=== PATIENT | male | born 1960 | race Caucasian/White ===

== ENCOUNTER 2017-08-25 17:18 | Inpatient (IN) | payer MEDICARE ==
[~2017-08-25] VITALS: Ht 182.9 cm; Wt 119.3 kg
--- NOTE | 2017-08-25 18:00 | NUR ---
RN NOTES PATIENT ADMITTED FROM [place], PATIENT A/OX4, VERBALLY RESPONSIVE, NO DISTRESS NOTED, SKIN ASSESSMENT COMPLETED, PHOTOS TAKEN OF RIGHT SHOULDER ABSCESS AND BILATERAL HEEL REDNESS. DR. MICHEL GÓMEZ MADE AWARE OF ADMISSION. NEEDS ATTENDED. CALL LIGHT WITHIN REACH, WILL CONTINUE TO MONITOR.
--- NOTE | 2017-08-25 18:32 | NUR ---
RN NOTES PATIENT'S BP IS 125/79, BUT HEART RATE IS 133, PATIENT HAS IRREGULAR HEART RATE, UNABLE TO COUNT MANUALLY. PATIENT IS ASYMPTOMATIC AND IN NO DISTRESS. DR. GÓMEZ MADE AWARE WITH ORDERS TO TRANSFER PATIENT TO TELE FLOOR. NURSING WORK ADJUSTMENT INSTRUCTOR AND CHARGE NURSE MADE AWARE.
[2017-08-25] MEDS ORDERED: IV NS 0.9% 1,000 ML IV PRN (18:35)
[2017-08-25 18:56] VITALS: BP 125/79
[2017-08-25] MEDS ORDERED: Z GUARD REMEDY 2 OZ OINT TP PRN (19:00)
[2017-08-25] MEDS ORDERED: ACETAMINOPHEN 325 MG TABLET PO PRN (19:00)
[2017-08-25] MEDS ORDERED: HYDROCODONE/APAP 10/325MG 1 EA TABLET PO PRN (19:00)
[2017-08-25] MEDS ORDERED: ONDANSETRON HCL/PF 4 MG/2 ML VIAL IVP PRN (19:00)
[2017-08-25] MEDS ORDERED: ZOLPIDEM TARTRATE 5 MG TABLET PO PRN (19:00)
--- NOTE | 2017-08-25 19:07 | NUR ---
RN NOTES PATIENT SEEN BY DR. MICHEL GÓMEZ, PER , OK FOR PATIENT TO STAY HERE IN [facility], DR. MICHEL GÓMEZ CALLED SURGEON ON-CALL FOR POSSIBLE SURGERY TONIGHT. PATIENT IS IN NO DISTRESS, NEEDS ATTENDED AND MET, CALL LIGHT WITHIN REACH, WILL CONTINUE TO MONITOR.
[2017-08-25] MEDS ORDERED: DEXTROSE 50%-WATER 50 ML DISP.SYRIN IV PRN (19:30)
[2017-08-25] MEDS ORDERED: DILTIAZEM HCL 50 MG IV IV ONE (19:30)
[2017-08-25] MEDS ORDERED: DILTIAZEM HCL IV 125 MG in IV NS 0.9% 100 ML IV PRN (19:30)
--- NOTE | 2017-08-25 19:30 | NUR ---
RN NOTES RECEIVED PATIENT IN BED AWAKE, AO X 3, ABLE TO MAKE NEEDS KNOWN. NO ACUTE DISTRESS NOTED. DENIES ANY PAIN AT THIS TIME. IV SITE PATENT, INTACT; FLUSHED. SAFETY REMINDERS GIVEN. ON LOW BED WITH BILATERAL UPPER SIDE RAILS UP. CALL SIMON WITHIN EASY REACH. WILL CONTINUE TO MONITOR.
[2017-08-25 20:00] VITALS: BP 128/81
--- NOTE | 2017-08-25 20:22 | NUR ---
RN NOTES PATIENT PICKED UP BY OR NURSES FOR RIGHT SHOULDER BLADE INCISION AND DRAINAGE. PATIENT IN STABLE CONDITION.
[2017-08-25] MEDS ORDERED: FEE PK DOSING 1 MIN EA MC ONE (20:29)
--- NOTE | 2017-08-25 20:30 | NUR ---
RN NOTES PER MICHEL GÓMEZ GLUER AND WEDGER, CARDIZEM IV ORDERS CANCELLED. REPORT GIVEN TO HERMANN SCHULTZ IN TELE/[facility] FIRST FLOOR FOR CONTINUITY OF CARE.
[2017-08-25 20:43] LABS: BASOPHILS % (AUTO) 0.3 % (0.0-2.0); EOSINOPHILS % (AUTO) 0.9 % (0.0-6.0); HEMATOCRIT 44 % (39-51); HEMOGLOBIN 14.6 g/dL (13.5-17.5); LYMPHOCYTES # (AUTO) 1.3 /CMM (0.8-4.8); LYMPHOCYTES % (AUTO) 11.7 % (20.0-44.0); MEAN CORPUSCULAR HEMOGLOBIN 30 PG (26.0-33.0); MEAN CORPUSCULAR HGB CONC 33 g/dl (31.0-36.0); MEAN CORPUSCULAR VOLUME 91 fL (80-96); MONOCYTES # (AUTO) 1.1 /CMM (0.1-1.30); MONOCYTES % (AUTO) 10.1 % (2.0-12.0); NEUTROPHILS # (AUTO) 8.7 /CMM (1.8-8.9); PLATELET COUNT (AUTO) 218 /CMM (150-450); RDW COEFFICIENT OF VARIATION 12.4 (11.5-15.0); RED BLOOD CELL COUNT(AUTO) 4.84 MIL/uL (4.5-6.0); WHITE BLOOD COUNT (AUTO) 11.3 K/uL (4.3-11.0)
[2017-08-25 20:54] LABS: CALCIUM, SERUM 8.6 mg/dL (8.5-10.1); CREATININE 1.1 mg/dL (0.6-1.3); POTASSIUM 3.5 mmol/L (3.5-5.1)
[2017-08-25] MEDS ORDERED: BACITRACIN 50000 UNITS/VIAL ONE (20:54)
[2017-08-25] MEDS ORDERED: LIDOCAINE 0.5% HCL 50 ML VIAL ONE (20:55)
[2017-08-25 20:57] LABS: MAGNESIUM 1.8 mg/dL (1.8-2.4); PHOSPHORUS 3.2 mg/dL (2.5-4.9)
[2017-08-25] MEDS ORDERED: HYDROMORPHONE INJ 2 MG/ML DISP.SYRIN ONE (20:58)
[2017-08-25] MEDS ORDERED: ROCURONIUM BROMIDE 50 MG/5 ML ONE (20:58)
[2017-08-25] MEDS ORDERED: SUCCINYLCHOLINE CHLORIDE 20 MG/ML VIAL ONE (20:58)
[2017-08-25] MEDS: VANCOMYCIN 1.5 GM in IV D5W 500 ML IV SCH (21:00)
[2017-08-25 21:01] LABS: INR 1.11 (0.87-1.13)
[2017-08-25 23:10] VITALS: BP 129/83
--- NOTE | 2017-08-25 23:10 | NUR ---
TUBE SIZER OPERATOR INITIAL NOTE RECEIVED REPORT FROM OR NURSE MASON. RECEIVED PATIENT VIA DALE, Sosa/RAF4, DENIES PAIN OR DISCOMFORT. DENIES SOB. ON 4LPMO2 VIA NC. SKIN WARM AND DRY TO TOUCH. WITH RIGHT SHOULDER DRESSING IN PLACE, INTACT AND DRY. ORIENTED TO ROOM AND CALL LIGHT SYSTEM. PATIENT VERBALIZED UNDERSTANDING. HOB ELEVATED. SIDE RAILS UP AND LOCKED. BED KEPT AT LOWEST POSITION. CALL LIGHT KEPT WITHIN EASY REACH. WILL CONTINUE TO MONITOR. Addendum: 08/26/17 at 0140 by AGUSTINA LAWS RN PLEASE ADD TO NOTE: PATIENT RECEIVED AFIB UNCONTROLLED 122. DENIES CHEST PAIN. PATIENT NO S/S OF DISTRESS.
[2017-08-25] MEDS ORDERED: ACETAMINOPHEN 650 MG/20.3 ML UDC NG PRN (23:30)
[2017-08-25] MEDS ORDERED: HYDROMORPHONE 1 MG/1 ML DISP.SYRIN IV PRN (23:30)
--- NOTE | 2017-08-25 23:57 | NUR ---
GATHERING MACHINE FEEDER NOTE CHARGE NURSE SPOKE WITH PHARMACY TO CLARIFY ANTIBIOTIC ORDERS, PER PHARMACY HOLD OFF ON VANCOMYCIN DOSE FOR TONIGHT AND CHECK VANCO TROUGH LEVEL RANDOM IN AM, OK TO GIVE ZOSYN NOW AT SAME DOSE. DR. COWAN AT BEDSIDE SPEAKING WITH PATIENT.
[2017-08-26] VITALS (47 sets, daily range): BP systolic 93–118; BP diastolic 50–84
[2017-08-26] MEDS ORDERED: DILTIAZEM HCL 50 MG IV IV ONE
[2017-08-26] MEDS ORDERED: DILTIAZEM HCL IV 125 MG in IV D5W 100 ML IV PRN ×2
[2017-08-26] MEDS: BLOOD SUGAR DIAGNOSTIC 1 EACH STRIP IN SCH ×7 (00:07→21:14)
[2017-08-26] MEDS: INSULIN REGULAR, HUMAN 100 UNIT/ML 3 ML VIAL SQ PRN ×6 (00:18→21:18)
[2017-08-26] MEDS ORDERED: PIPERACILLIN /TAZOBACTAM 3.375 G VIAL IV ONE (00:21)
[2017-08-26] MEDS: PIPERACILLIN /TAZOBACTAM 3.375 G in IV D5W 50 ML IV SCH ×5 (00:22→23:32)
--- NOTE | 2017-08-26 01:00 | NUR ---
FINANCIAL OFFICER NOTE BLOOD SUGAR CHECK FOR 0100 NOT TAKEN, BLOOD SUGAR RECENTLY TAKEN AROUND MIDNIGHT. WILL CHECK NEXT SCHEDULED DOSE.
[2017-08-26 04:39] LABS: BASOPHILS % (AUTO) 0.4 % (0.0-2.0); EOSINOPHILS % (AUTO) 0.2 % (0.0-6.0); HEMATOCRIT 40 % (39-51); HEMOGLOBIN 13.7 g/dL (13.5-17.5); LYMPHOCYTES # (AUTO) 0.9 /CMM (0.8-4.8); LYMPHOCYTES % (AUTO) 8.9 % (20.0-44.0); MEAN CORPUSCULAR HEMOGLOBIN 31 PG (26.0-33.0); MEAN CORPUSCULAR HGB CONC 34 g/dl (31.0-36.0); MEAN CORPUSCULAR VOLUME 90 fL (80-96); MONOCYTES # (AUTO) 0.4 /CMM (0.1-1.30); MONOCYTES % (AUTO) 4.3 % (2.0-12.0); NEUTROPHILS # (AUTO) 8.4 /CMM (1.8-8.9); NEUTROPHILS % (AUTO) 86.2 % (43.0-81.0); PLATELET COUNT (AUTO) 202 /CMM (150-450); RDW COEFFICIENT OF VARIATION 12.6 (11.5-15.0); RED BLOOD CELL COUNT(AUTO) 4.46 MIL/uL (4.5-6.0); WHITE BLOOD COUNT (AUTO) 9.7 K/uL (4.3-11.0)
[2017-08-26 05:01] LABS: ALBUMIN 1.9 g/dL (3.4-5.0); BILIRUBIN,TOTAL 0.8 mg/dL (0.2-1.0); CALCIUM, SERUM 7.8 mg/dL (8.5-10.1); CREATININE 0.9 mg/dL (0.6-1.3); MAGNESIUM 1.9 mg/dL (1.8-2.4); PHOSPHORUS 3.9 mg/dL (2.5-4.9); POTASSIUM 4.2 mmol/L (3.5-5.1); TOTAL PROTEIN, SERUM 5.8 g/dL (6.4-8.2)
[2017-08-26 05:02] LABS: THYROID STIMULATING HORMONE 0.377 uIU/mL (0.358-3.74)
--- NOTE | 2017-08-26 06:08 | NUR ---
IMPORT DISPATCHER NOTE NOTED PATIENT HAS NOT HAD URINE OUTPUT, PATIENT DENIES ANY BLADDER DISCOMFORT OR URGENCY. STATED HE URINATED LARGE AMOUNT PRIOR TO HIS PROCEDURE. WILL CONTINUE TO MONITOR.
--- NOTE | 2017-08-26 07:25 | NUR ---
ROAD MACHINE RUNNER CLOSING NOTE NO SIGNIFICANT CHANGES OVERNIGHT. NO RESPIRATORY DISTRESS NOTED. DENIES PAIN OR DISCOMFORT. ALL NEEDS ANTICIPATED AND MET. SIDE RAILS UP AND LOCKED. BED KEPT AT LOWEST POSITION. CALL LIGHT KEPT WITHIN EASY REACH. WILL CONTINUE TO MONITOR. Addendum: 08/26/17 at 0729 by AGUSTINA LAWS RN CONTINUITY OF CARE ENDORSED TO AM NURSE
--- NOTE | 2017-08-26 08:15 | NUR ---
received pt from day shift, a/p x4, follows commands, Afib controlled, on cardizem drip at 5mg/hr, on 2L 02 sat well, lungs clear, BL leg pitting 3+ edema, surgical dressing observed, no bleeding and s/s of infection noted, v/s stable, no pain, pt turns and repositions by himself.
[2017-08-26] MEDS: VANCOMYCIN 1.5 GM in IV D5W 500 ML IV SCH ×2 (09:17→21:00)
[2017-08-26] MEDS: CARVEDILOL 12.5 MG TABLET PO SCH ×2 (09:30→21:00)
[2017-08-26] MEDS: IV NS 0.9% 1,000 ML IV PRN ×2 (14:53→23:32)
--- NOTE | 2017-08-26 16:14 | NUR ---
pt is resting in the bed, alert, follows commands, Afib controlled, off of Cardizem, on 2 L 02 sat well, no pain, v/s stable, good urine output, pt cleaned, changed and repositioned.
[2017-08-26] MEDS: DAKINS QUARTER STRENGTH (0.125%) 480 ML BOTTLE TOP SCH (17:42)
--- NOTE | 2017-08-26 19:30 | NUR ---
LEGAL SPECIALIST INITIAL NOTE RECEIVED PATIENT A/OX4, ABLE TO MAKE NEEDS KNOWN. DENIES PAIN OR DISCOMFORT. DENIES SOB. ON 2LPMO2 VIA NC. SKIN WARM AND DRY TO TOUCH. WITH RIGHT SHOULDER DRESSING IN PLACE, INTACT AND DRY. IVF RUNNING. HOB ELEVATED. SIDE RAILS UP AND LOCKED. BED KEPT AT LOWEST POSITION. CALL LIGHT KEPT WITHIN EASY REACH. WILL CONTINUE TO MONITOR. Addendum: 08/27/17 at 0532 by AGUSTINA LAWS RN PER AM NURSE REPORT, PER DR. GÓMEZ WANTS TO KEEP PATIENT IN ICU FOR ONE MORE NIGHT.
[2017-08-27] VITALS (25 sets, daily range): BP systolic 101–118; BP diastolic 54–80
[2017-08-27] MEDS: BLOOD SUGAR DIAGNOSTIC 1 EACH STRIP IN SCH ×6 (00:28→22:15)
[2017-08-27] MEDS: INSULIN REGULAR, HUMAN 100 UNIT/ML 3 ML VIAL SQ PRN ×3 (00:32→09:12)
--- NOTE | 2017-08-27 03:12 | NUR ---
SAMPLE BOX MAKER NOTE PATIENT STATES HE HAS TO USE RESTROOM TO HAVE BOWEL MOVEMENT, OFFERED BED BASSETT AND BEDSIDE COMMODE, PATIENT REFUSED AND INSISTED TO USE THE BATHROOM. INFORMED CHARGE NURSE, OK TO USE RESTROOM. ASSISTED PATIENT TO RESTROOM, PATIENT AMBULATED WITH STEADY GAIT. PER PATIENT HE HAD A FALSE ALARM AND ONLY URINATED LARGE AMOUNT IN THE TOILET. ASSISTED PATIENT BACK TO BED. PER PATIENT HE WOULD LIKE TO LEAVE DVT PUMPS OFF FOR NOW, STATES THEY'RE UNCOMFORTABLE. INFORMED PATIENT OF BENEFITS, PATIENT VERBALIZED UNDERSTANDING BUT WOULD STILL LIKE TO LEAVE THEM OFF AT THIS TIME. WILL CONTINUE TO MONITOR.
[2017-08-27 04:27] LABS: BASOPHILS % (AUTO) 0.2 % (0.0-2.0); EOSINOPHILS % (AUTO) 1.8 % (0.0-6.0); HEMATOCRIT 39 % (39-51); HEMOGLOBIN 12.8 g/dL (13.5-17.5); LYMPHOCYTES # (AUTO) 1.6 /CMM (0.8-4.8); LYMPHOCYTES % (AUTO) 21.2 % (20.0-44.0); MEAN CORPUSCULAR HEMOGLOBIN 30 PG (26.0-33.0); MEAN CORPUSCULAR HGB CONC 33 g/dl (31.0-36.0); MEAN CORPUSCULAR VOLUME 89 fL (80-96); MONOCYTES # (AUTO) 0.7 /CMM (0.1-1.30); MONOCYTES % (AUTO) 9.6 % (2.0-12.0); NEUTROPHILS % (AUTO) 67.2 % (43.0-81.0); PLATELET COUNT (AUTO) 206 /CMM (150-450); RDW COEFFICIENT OF VARIATION 12.7 (11.5-15.0); RED BLOOD CELL COUNT(AUTO) 4.34 MIL/uL (4.5-6.0); WHITE BLOOD COUNT (AUTO) 7.5 K/uL (4.3-11.0)
[2017-08-27 04:43] LABS: MAGNESIUM 1.8 mg/dL (1.8-2.4); PHOSPHORUS 3.1 mg/dL (2.5-4.9)
[2017-08-27] MEDS: PIPERACILLIN /TAZOBACTAM 3.375 G in IV D5W 50 ML IV SCH ×3 (05:16→17:11)
[2017-08-27] MEDS: DAKINS QUARTER STRENGTH (0.125%) 480 ML BOTTLE TOP SCH ×2 (05:24→17:14)
--- NOTE | 2017-08-27 07:33 | NUR ---
SLIVER HANDLER CLOSING NOTE NO SIGNIFICANT CHANGES OVERNIGHT. NO RESPIRATORY DISTRESS NOTED. DENIES PAIN OR DISCOMFORT. ALL NEEDS ANTICIPATED AND MET. WOUND TX DONE. SIDE RAILS UP AND LOCKED. BED KEPT AT LOWEST POSITION. CALL LIGHT KEPT WITHIN EASY REACH. CONTINUITY OF CARE ENDORSED TO AM NURSE.
--- NOTE | 2017-08-27 08:12 | NUR ---
received pt from night, shift, a/o x4, follows commands, Afib controlled, on 2L 02 sat well, tolerates diet, good urine output, seen by auto slip cover installer and surgeon, v/s stable, no pain, pt turns and repositions by himself.
--- NOTE | 2017-08-27 08:36 | NUR ---
WOUND CARE CONSULT WOUND CARE RECEIVED CONSULT FOR POST OP WOUND LOCAL EXCISION-LEFT SHOULDER. WOUND CARE WILL DEFER CONSULT AND ALL TREATMENT PLANS TO SURGICAL TEAM WHO ARE CURRENTLY FOLLOWING. PATIENT WITH LORENA AT 16, ALL PRESSURE ULCER PREVENTION MEASURES ARE NOTED TO BE IN PLACE. WILL SEE PRN.
[2017-08-27] MEDS: VANCOMYCIN 1.5 GM in IV D5W 500 ML IV SCH ×2 (08:41→22:12)
[2017-08-27] MEDS: CARVEDILOL 12.5 MG TABLET PO SCH ×2 (09:00→22:14)
[2017-08-27] MEDS: POTASSIUM CHLORIDE 20 MEQ TAB.PRT.SR PO SCH ×3 (09:09→11:08)
[2017-08-27] MEDS: INSULIN LISPRO/ASPART 100 UNIT/ML CARTRIDGE SQ SCH ×2 (11:12→17:11)
[2017-08-27] MEDS ORDERED: BLOOD SUGAR DIAGNOSTIC 1 EACH STRIP IN SCH (12:00)
--- NOTE | 2017-08-27 15:45 | NUR ---
RN NOTES RECEIVED REPORT FROM PARAG XIAO RN
--- NOTE | 2017-08-27 16:00 | NUR ---
TELE/RN INITIAL NOTES RECEIVED PT FROM ICU VIA ICU BED. A/0X4. ON ROOM AIR, TOLERATING WELL, NO SOB NOTED. NO C/O PAIN AT THIS TIME. AFIB CONTROLLED ON TELE MONITOR. WITH LAC G20 SL. INTACT AND PATENT. NO SIGNS OF INFECTION. POS STAPH INFECTION ON WOUND PER ENDORSEMENT. CONTACT ISOLATION IN PLACED. SAFETY MEASURES IN PLACED. CALL LIGHT WITHIN REACH. WILL CONT TO MONITOR
--- NOTE | 2017-08-27 16:02 | NUR ---
pt transferred to Tele 118-1, pt is stable, ACLS followed, report given to Charleen.
--- NOTE | 2017-08-27 18:15 | NUR ---
RN NOTES NOTED PT AFIB ON TELE MONITOR, HR 130 UP TO 147. PT DENIES CHEST PAIN. NOTIFIED DR GÓMEZ WITH NEW ORDERS MADE NEW ORDER: CARDIZEM CD 240 MG PO NOW THEN Q DAILY. DIGOXIN 0.25 MG PO NOW THEN 0.125 MG PO Q DAILY. ORDERS NOTED AND CARRIED OUT. WILL CONT TO MONITOR
[2017-08-27] MEDS ORDERED: DILTIAZEM HCL CD 240 MG PO STA (18:20)
[2017-08-27] MEDS ORDERED: DIGOXIN 0.25 MG TABLET PO STA (18:42)
--- NOTE | 2017-08-27 19:15 | NUR ---
RN NOTES PT IN STABLE CONDITION. NO C/O PAIN AT THIS TIME. NO SOB NOTED. STILL AFIB HR 124 ON TELEMONITOR, SAFETY MEASURES OBSERVED AT ALL TIMES. ALL NEEDS ANTICIPATED. ENDORSED TO PM SHIFT NURSE FOR SHANIA
--- NOTE | 2017-08-27 20:00 | NUR ---
RN INITIAL NOTES RECEIVED PT IN BED. A/0X4. ON ROOM AIR, TOLERATING WELL, NO SOB NOTED. NO C/O PAIN AT THIS TIME. AFIB CONTROLLED ON TELE MONITOR. WITH LAC G20 SL. INTACT AND PATENT. NO SIGNS OF INFECTION. CONTACT ISOLATION IN PLACED. SAFETY MEASURES IN PLACED. CALL LIGHT WITHIN REACH. WILL CONT TO MONITOR
[2017-08-27] MEDS ORDERED: INSULIN GLARGINE, 100 UNIT/ML CARTRIDGE SQ SCH (22:00)
--- NOTE | 2017-08-27 23:45 | NUR ---
PHYSIOLOGIST OPENING NOTES: RECEIVED PT IN BED AND IS A/OX4. PT WATCHING TELEVISION. PT IS ON 2LPM VIA NC. PT IS BEING INFUSED WITH VANCOMYCIN 250ML/HR AT THE MOMENT. NO SOB NOTED. NO S/S OF DISTRESS. CALL LIGHT WITHIN PT'S REACH. BED KEPT IN LOW, LOCKED POSITION, AND SIDE RAILS X 2UP. WILL CONTINUE TO MONITOR PT. Addendum: 08/28/17 at 0019 by RALEIGH HARTLEY RN PT ON TELE BOX AND READING SHOWS A-FIB 109 WITH PACS.
--- NOTE | 2017-08-27 23:56 | NUR ---
RN CLOSING NOTES REPORT GIVING TO DUSTIN FOR SHANIA.
[2017-08-28] VITALS: BP 102/69
[2017-08-28] MEDS: PIPERACILLIN /TAZOBACTAM 3.375 G in IV D5W 50 ML IV SCH ×6 (00:25→23:51)
--- NOTE | 2017-08-28 02:30 | NUR ---
PERSONAL LINES ACCOUNT MANAGER NOTES: PT COMPLAINING OF PAIN IN RIGHT UPPER BACK AFTER WOUND TX. PT WAS ADMINISTERED MORPHINE 4MG IV. WILL CONTINUE TO MONITOR.
[2017-08-28] MEDS: MORPHINE SULFATE INJ 2 MG/ML DISP.SYRIN IV PRN ×2 (02:31→18:58)
[2017-08-28 04:00] VITALS: BP 112/82
[2017-08-28] MEDS: DAKINS QUARTER STRENGTH (0.125%) 480 ML BOTTLE TOP SCH ×2 (05:08→17:25)
--- NOTE | 2017-08-28 05:08 | NUR ---
INVENTORY CONTROL PLANNER NOTES: HAD TO MANUALLY ADMIN DAKINS SINCE THERE WAS NO LABEL ON IT.
[2017-08-28] MEDS: BLOOD SUGAR DIAGNOSTIC 1 EACH STRIP IN SCH ×2 (06:22→11:59)
[2017-08-28] MEDS: INSULIN LISPRO/ASPART 100 UNIT/ML CARTRIDGE SQ SCH ×3 (06:23→17:16)
--- NOTE | 2017-08-28 06:27 | NUR ---
BACTERIOLOGIST FOOD NOTES: PT'S BLOOD SUGAR WAS 314.PT ADMINISTERED SCHEDULED LISPRO OF 5 UNITS. INFORMED CHARGE NURSE THAT PT'S OTHER INSULIN WAS DC. WILL ENDORSE TO AM NURSE.
--- NOTE | 2017-08-28 06:54 | NUR ---
DOCUMENT COORDINATOR CLOSING NOTES: ALL NEEDS WERE ATTENDED AND ANTICIPATED FOR. PT ON ROOM AIR AND ASLEEP AT THIS TIME. IV REMAINS IN L AC AND IS CURRENTLY H/L. PT ASLEEP AT THIS TIME BUT EASILY AROUSABLE TO TOUCH. CALL LIGHT WITHIN PT'S REACH. BED KEPT IN LOW, LOCKED POSITION, AND SIDE RAILSX 2 UP. PT ON TELE BOX AND READING SHOWS A FIB 96. WILL ENDORSE TO AM NURSE FOR SHANIA.
[2017-08-28 08:00] VITALS: BP 102/75
--- NOTE | 2017-08-28 08:00 | NUR ---
HOME DEMONSTRATOR NOTES PT IN BED, AWAKE, ALERT AND ORIENTED, NO COMPLAINT OF PAIN, BREATHING PATTERN NORMAL, CALL LIGHT WITHIN REACH, NEEDS ATTENDED.
[2017-08-28 08:11] LABS: BASOPHILS % (AUTO) 0.7 % (0.0-2.0); EOSINOPHILS % (AUTO) 1.6 % (0.0-6.0); HEMATOCRIT 41 % (39-51); HEMOGLOBIN 13.5 g/dL (13.5-17.5); LYMPHOCYTES # (AUTO) 1.6 /CMM (0.8-4.8); LYMPHOCYTES % (AUTO) 29.1 % (20.0-44.0); MEAN CORPUSCULAR HEMOGLOBIN 29 PG (26.0-33.0); MEAN CORPUSCULAR HGB CONC 33 g/dl (31.0-36.0); MEAN CORPUSCULAR VOLUME 90 fL (80-96); MONOCYTES # (AUTO) 0.4 /CMM (0.1-1.30); MONOCYTES % (AUTO) 7.9 % (2.0-12.0); NEUTROPHILS # (AUTO) 3.4 /CMM (1.8-8.9); NEUTROPHILS % (AUTO) 60.7 % (43.0-81.0); PLATELET COUNT (AUTO) 201 /CMM (150-450); RDW COEFFICIENT OF VARIATION 12.7 (11.5-15.0); RED BLOOD CELL COUNT(AUTO) 4.57 MIL/uL (4.5-6.0); WHITE BLOOD COUNT (AUTO) 5.6 K/uL (4.3-11.0)
[2017-08-28 08:35] LABS: ALBUMIN 1.9 g/dL (3.4-5.0); BILIRUBIN,TOTAL 0.7 mg/dL (0.2-1.0); CREATININE 1.1 mg/dL (0.6-1.3); MAGNESIUM 1.8 mg/dL (1.8-2.4); PHOSPHORUS 3.8 mg/dL (2.5-4.9); TOTAL PROTEIN, SERUM 5.8 g/dL (6.4-8.2)
[2017-08-28] MEDS: VANCOMYCIN 1.5 GM in IV D5W 500 ML IV SCH ×2 (09:51→21:34)
[2017-08-28] MEDS: DIGOXIN 0.125 MG TABLET PO SCH (09:52)
[2017-08-28] MEDS: CARVEDILOL 12.5 MG TABLET PO SCH ×2 (09:52→21:43)
[2017-08-28] MEDS: DILTIAZEM HCL CD 240 MG PO SCH (09:52)
--- NOTE | 2017-08-28 10:47 | NUR ---
ELEVATOR SERVICE TECHNICIAN NOTES PT IN BED, PT SEEN BY DR. JUDGE, PLAN OF CARE CARE DISCUSSED WITH PT, VERBALIZED UNDERSTANDING.
[2017-08-28 12:00] VITALS: BP 101/74
[2017-08-28] MEDS ORDERED: *INSULIN REGULAR(HUMULIN R)HUM 100 UNIT/ML VIAL SQ PRN (13:00)
[2017-08-28] MEDS ORDERED: DEXTROSE 50%-WATER 50 ML DISP.SYRIN IV PRN (13:00)
[2017-08-28] MEDS: BLOOD SUGAR DIAGNOSTIC 1 EACH STRIP VI SCH ×3 (13:22→21:58)
[2017-08-28] MEDS: INSULIN REGULAR, HUMAN 100 UNIT/ML 3 ML VIAL SQ PRN ×3 (13:28→21:46)
--- NOTE | 2017-08-28 14:22 | NUR ---
HEEL SANDER NOTES PT IN BED, AWAKE, ALERT AND ORIENTED, DENIES PAIN, NOT IN DISTRESS, DUE MEDS GIVEN ORDERED, BS CHECKED, 406, DR. GÓMEZ INFORMED, ORDERED TO RESUME MODERATE SLIDING SCALE COVERAGE OF REGULAR INSULIN AND TO INCREASE LANTUS TO 20 UNITS AT HS, NOTED AND CARRIED OUT, PT INFORMED, VERBALIZED UNDERSTANDING.
[2017-08-28 16:00] VITALS: BP 103/75
[2017-08-28] MEDS: LACTOBACILLUS RHAMNOSUS GG 1 EACH CAP.SPRINK PO SCH (16:57)
--- NOTE | 2017-08-28 19:00 | NUR ---
POT PRESS OPERATOR NOTES PT IN BED, AWAKE, ALERT AND ORIENTED, PAIN MEDICATION GIVEN FOR PAIN MANAGEMENT, TREATMENT AND DRESSING CHANGE DONE, TOLERATED WELL, PM MEDS GIVEN, CALL LIGHT WITHIN REACH, ALL NEEDS ATTENDED.
--- NOTE | 2017-08-28 19:51 | NUR ---
RAC SPECIALIST NOTES RECEIVED REPORT FROM VIRGIE SCHULTZ. PATIENT A/A/O X4, ABLE TO MAKE NEEDS KNOWN COMPLETELY. BREATHING EVEN & UNLABORED, TOLERATING ROOM AIR. ON TELE W/ CONTROLLED A-FIB, HR 70S. DENIES ANY RESPIRATORY OR CARDIAC DISTRESS. LEFT AC IV #18 NOTED W/ LEAKING, TO BE REMOVED. OTHERWISE, SKIN WARM, DRY & INTACT W/ DRESSING ON RIGHT SHOULDER WOUND CDI. DENIES ANY PAIN OR DISCOMFORT @ THIS TIME. PATIENT RESTING COMFORTABLY IN BED W/ SAFETY MEASURES MAINTAINED. INSTRUCTED TO USE CALL LIGHT FOR ASSISTANCE. FAMILY @ BEDSIDE. WILL CONTINUE TO MONITOR.
[2017-08-28 20:00] VITALS: BP_SYST 97; BP_SYST 99; BP_DIAS 74
[2017-08-28] MEDS: INSULIN GLARGINE, 100 UNIT/ML CARTRIDGE SQ SCH (21:46)
[2017-08-29] VITALS: BP_SYST 96; BP_SYST 99; BP_DIAS 69; BP_DIAS 76
[2017-08-29 04:00] VITALS: BP 95/69
[2017-08-29] MEDS: PIPERACILLIN /TAZOBACTAM 3.375 G in IV D5W 50 ML IV SCH ×2 (05:44→12:29)
[2017-08-29] MEDS: DAKINS QUARTER STRENGTH (0.125%) 480 ML BOTTLE TOP SCH ×2 (05:45→18:00)
--- NOTE | 2017-08-29 07:30 | NUR ---
FEED HANDLER INITIAL NOTES: RECEIVED PT IN BED, AWAKE. A&O X4. ON O2 VIA NC AT 2LPM, SATURATING 96%. DENIES ANY PAIN OR DISCOMFORT AT THIS TIME. CONTACT ISOLATION IN PLACE FOR STAPH WOUND. IV TO R HAND IN PLACE, PATENT AND INTACT. VS STABLE. BED IN LOW LOCKED POSITION, CALL LIGHT WITHIN REACH, PLAN OF CARE DISCUSSED WITH PT. WILL CONTINUE TO MONITOR.
[2017-08-29] MEDS: BLOOD SUGAR DIAGNOSTIC 1 EACH STRIP VI SCH ×4 (07:41→21:54)
[2017-08-29] MEDS: INSULIN LISPRO/ASPART 100 UNIT/ML CARTRIDGE SQ SCH ×3 (07:51→17:30)
[2017-08-29] MEDS: INSULIN REGULAR, HUMAN 100 UNIT/ML 3 ML VIAL SQ PRN ×3 (07:53→21:55)
[2017-08-29 08:00] VITALS: BP 111/81
[2017-08-29 09:05] LABS: BASOPHILS % (AUTO) 0.3 % (0.0-2.0); EOSINOPHILS % (AUTO) 1.2 % (0.0-6.0); HEMATOCRIT 42 % (39-51); HEMOGLOBIN 13.8 g/dL (13.5-17.5); LYMPHOCYTES # (AUTO) 1.3 /CMM (0.8-4.8); LYMPHOCYTES % (AUTO) 15.7 % (20.0-44.0); MEAN CORPUSCULAR HEMOGLOBIN 30 PG (26.0-33.0); MEAN CORPUSCULAR HGB CONC 33 g/dl (31.0-36.0); MEAN CORPUSCULAR VOLUME 90 fL (80-96); MONOCYTES # (AUTO) 0.6 /CMM (0.1-1.30); MONOCYTES % (AUTO) 7.3 % (2.0-12.0); NEUTROPHILS # (AUTO) 6.3 /CMM (1.8-8.9); NEUTROPHILS % (AUTO) 75.5 % (43.0-81.0); PLATELET COUNT (AUTO) 186 /CMM (150-450); RDW COEFFICIENT OF VARIATION 12.6 (11.5-15.0); WHITE BLOOD COUNT (AUTO) 8.4 K/uL (4.3-11.0)
[2017-08-29 09:23] LABS: CALCIUM, SERUM 8.5 mg/dL (8.5-10.1); CREATININE 1.2 mg/dL (0.6-1.3); MAGNESIUM 1.8 mg/dL (1.8-2.4); PHOSPHORUS 4.1 mg/dL (2.5-4.9)
[2017-08-29] MEDS: LACTOBACILLUS RHAMNOSUS GG 1 EACH CAP.SPRINK PO SCH ×2 (09:25→17:00)
[2017-08-29] MEDS: CARVEDILOL 12.5 MG TABLET PO SCH ×2 (09:26→21:21)
[2017-08-29] MEDS: DILTIAZEM HCL CD 240 MG PO SCH (09:26)
[2017-08-29] MEDS: DIGOXIN 0.125 MG TABLET PO SCH (09:26)
[2017-08-29] MEDS: VANCOMYCIN 1.5 GM in IV D5W 500 ML IV SCH ×2 (09:51→21:21)
[2017-08-29 12:00] VITALS: BP 104/74
[2017-08-29 16:00] VITALS: BP 104/74
--- NOTE | 2017-08-29 18:00 | NUR ---
PT C/O STOMACH ACHE, FEELING NAUSEOUS. OFFERED ZOFRAN, PT REFUSED. STATES THAT IT MAY HAVE BEEN SOMETHING HE ATE BEFORE BUT WANTS TO WAIT AND SEE. OFFERED FLUIDS, WAS GIVEN FRESH ICE WATER AND SALTINE CRACKERS. PT REFUSED INSULIN DUE TO NOT EATING LUNCH AND NOT WANTING TO EAT DINNER. BS 245, WILL CONTINUE TO MONITOR AND ENDORSE TO PM SHIFT.
--- NOTE | 2017-08-29 19:00 | NUR ---
RN M/S END NOTES: PT REMAINS IN BED RESTING AT THIS TIME. DENIES ANY PAIN OR DISCOMFORT BUT STILL SLIGHTLY NAUSEOUS. BED IN LOW LOCKED POSITION, CALL LIGHT WITHIN REACH. WILL ENDORSE TO PM SHIFT FOR CONTINUITY OF CARE.
--- NOTE | 2017-08-29 19:00 | NUR ---
PT STILL NOT FEELING WELL. PER PT, WANTS TO REST AND WAIT FOR DRESSING CHANGE TO HIS R SHOULDER/UPPER BACK. DRESSING DRY AND INTACT AT THIS TIME. MD FINCH
[2017-08-29 20:00] VITALS: BP 130/80
[2017-08-29] MEDS: INSULIN GLARGINE, 100 UNIT/ML CARTRIDGE SQ SCH ×2 (21:53→22:00)
--- NOTE | 2017-08-29 21:56 | NUR ---
RN NOTES HELD HUMALOG DUE TO PATIENT STATING "HE BARELY ATE ANYTHING DURING THE DAY". HE SAID HE DOESN'T FEEL LIKE EATING ANYTHING.
[2017-08-30] MEDS: MORPHINE SULFATE INJ 2 MG/ML DISP.SYRIN IV PRN (02:40)
[2017-08-30 04:00] VITALS: BP 104/68
[2017-08-30] MEDS: DAKINS QUARTER STRENGTH (0.125%) 480 ML BOTTLE TOP SCH ×2 (05:47→16:47)
[2017-08-30 07:01] LABS: BASOPHILS % (AUTO) 0.3 % (0.0-2.0); EOSINOPHILS % (AUTO) 1.2 % (0.0-6.0); HEMATOCRIT 38 % (39-51); HEMOGLOBIN 12.8 g/dL (13.5-17.5); LYMPHOCYTES # (AUTO) 1.3 /CMM (0.8-4.8); LYMPHOCYTES % (AUTO) 17.5 % (20.0-44.0); MEAN CORPUSCULAR HEMOGLOBIN 30 PG (26.0-33.0); MEAN CORPUSCULAR HGB CONC 33 g/dl (31.0-36.0); MEAN CORPUSCULAR VOLUME 90 fL (80-96); MONOCYTES # (AUTO) 0.5 /CMM (0.1-1.30); MONOCYTES % (AUTO) 6.6 % (2.0-12.0); NEUTROPHILS # (AUTO) 5.7 /CMM (1.8-8.9); NEUTROPHILS % (AUTO) 74.4 % (43.0-81.0); PLATELET COUNT (AUTO) 166 /CMM (150-450); RDW COEFFICIENT OF VARIATION 12.6 (11.5-15.0); RED BLOOD CELL COUNT(AUTO) 4.27 MIL/uL (4.5-6.0); WHITE BLOOD COUNT (AUTO) 7.7 K/uL (4.3-11.0)
--- NOTE | 2017-08-30 07:15 | NUR ---
RN MS INITIAL NOTES RECEIVED REPORT AND PT FROM PM NURSE, PT RESTING IN BED WITH NO ACUTE DISTRESS OR SOB, A&O X4 TAJIK SPEAKING, ON2L NC SAT ABOVE 97%, BRP WITH NO PHYSICAL PROBLEM, RT HAND 20 G IV RUNNING TKO, NO INFILTRATION INTACT AND PATENT, ALL SAFETY MEASURES INITIATED, WILL CONTINUE TO MONITOR.
[2017-08-30 07:21] LABS: CALCIUM, SERUM 8.1 mg/dL (8.5-10.1); MAGNESIUM 1.8 mg/dL (1.8-2.4); PHOSPHORUS 3.1 mg/dL (2.5-4.9)
[2017-08-30] MEDS: INSULIN LISPRO/ASPART 100 UNIT/ML CARTRIDGE SQ SCH ×4 (07:30→17:30)
[2017-08-30 08:00] VITALS: BP_SYST 118; BP_SYST 95; BP_DIAS 58; BP_DIAS 78
[2017-08-30] MEDS: LACTOBACILLUS RHAMNOSUS GG 1 EACH CAP.SPRINK PO SCH ×2 (09:15→16:42)
[2017-08-30] MEDS: DILTIAZEM HCL CD 240 MG PO SCH (09:16)
[2017-08-30] MEDS: DIGOXIN 0.125 MG TABLET PO SCH (09:16)
[2017-08-30] MEDS: CARVEDILOL 12.5 MG TABLET PO SCH ×2 (09:16→21:31)
[2017-08-30] MEDS: BLOOD SUGAR DIAGNOSTIC 1 EACH STRIP VI SCH ×4 (09:17→21:35)
[2017-08-30] MEDS: VANCOMYCIN 1.5 GM in IV D5W 500 ML IV SCH (09:26)
--- NOTE | 2017-08-30 09:48 | NUR ---
RN MS NOTE S PT REFUSED TO EAT BREAKFAST, HELD HUMALOG, PTS BG 223 MG/DL, WILL CONTINUE TO MONITOR BG
[2017-08-30] MEDS: LOSARTAN POTASSIUM 50 MG TABLET PO SCH (11:00)
--- NOTE | 2017-08-30 12:30 | NUR ---
RN MS NOTES PTS BG 319 MG/DL, PT STATED OK TO HAVE HUMOLOG 5 UNITS, STATES WILL NOT EAT LUNCH HAS NO APPETITE.
--- NOTE | 2017-08-30 15:54 | NUR ---
MISTY met with Dr. Hargrove who informed MISTY that pt. needs assistance in applying for [employer] as secondary insurance. Dr. Hargrove also informed MISTY that pt. will need to go to [facility] or [facility] upon discharge for further wound care. MISTY informed Dr. Hargrove she will notify the embedded case manager regarding discharge to SNF. MISTY contacted Leighann, insurance liaison and left her a voicemail message requesting her to assist the pt. in applying for [employer]. MISTY informed embedded case manager Cecilia regarding Dr. Hargrove's discharge plan for the pt.
[2017-08-30 16:00] VITALS: BP 107/71
--- NOTE | 2017-08-30 16:18 | NUR ---
RN MS NOTES PT HAS BACK DEBRIDEMENT DONE WITH DR YUSUF, PT STABLE WITH NO PAIN AND DRESSING PLACED.
[2017-08-30 18:00] VITALS: BP 107/71
--- NOTE | 2017-08-30 18:06 | NUR ---
RN MS NOTES PT DID NOT RECEIVE HUMOLOG FAST ACTING INSULIN SINCE PTS BG IS 216 MG/DL BUT PT DOES NOT WANT TO EAT ANY DINNER, WILL CONTINUE TO MONITOR BG, PT AWARE.
--- NOTE | 2017-08-30 18:30 | NUR ---
RN MS NOTES INSTRUCTED PT HOW TO USE INCENTIVE SPIROMETER AT BEDSIDE, PT USED FEW TIMES BUT STATES COUGHING A LOT SO WILL CONTINUE TO USE LATER.
--- NOTE | 2017-08-30 18:31 | NUR ---
RN MS ENDING NOTES PT STABLE WITH NO ACUTE CHANGES NOTED, WILL CONTINUE TO MONITOR, WILL ENDORSE TO PM NURSE FOR CONTINUITY OF CARE.
[2017-08-30 20:00] VITALS: BP 112/77
[2017-08-30] MEDS ORDERED: CEFTRIAXONE 2 G in IV D5W 100 ML IV SCH (21:00)
[2017-08-30] MEDS: INSULIN GLARGINE, 100 UNIT/ML CARTRIDGE SQ SCH (21:35)
[2017-08-31 04:00] VITALS: BP 119/72
[2017-08-31] MEDS: DAKINS QUARTER STRENGTH (0.125%) 480 ML BOTTLE TOP SCH ×2 (06:12→18:00)
[2017-08-31 06:34] LABS: BASOPHILS % (AUTO) 0.2 % (0.0-2.0); EOSINOPHILS % (AUTO) 0.9 % (0.0-6.0); HEMATOCRIT 39 % (39-51); HEMOGLOBIN 13.1 g/dL (13.5-17.5); LYMPHOCYTES # (AUTO) 1.2 /CMM (0.8-4.8); LYMPHOCYTES % (AUTO) 14.9 % (20.0-44.0); MEAN CORPUSCULAR HEMOGLOBIN 30 PG (26.0-33.0); MEAN CORPUSCULAR HGB CONC 33 g/dl (31.0-36.0); MEAN CORPUSCULAR VOLUME 90 fL (80-96); MONOCYTES # (AUTO) 0.7 /CMM (0.1-1.30); MONOCYTES % (AUTO) 8.8 % (2.0-12.0); NEUTROPHILS # (AUTO) 6.2 /CMM (1.8-8.9); NEUTROPHILS % (AUTO) 75.2 % (43.0-81.0); PLATELET COUNT (AUTO) 166 /CMM (150-450); RDW COEFFICIENT OF VARIATION 12.6 (11.5-15.0); RED BLOOD CELL COUNT(AUTO) 4.34 MIL/uL (4.5-6.0); WHITE BLOOD COUNT (AUTO) 8.3 K/uL (4.3-11.0)
[2017-08-31 06:35] LABS: CALCIUM, SERUM 8.4 mg/dL (8.5-10.1); CREATININE 1.2 mg/dL (0.6-1.3); MAGNESIUM 1.9 mg/dL (1.8-2.4); PHOSPHORUS 2.9 mg/dL (2.5-4.9); POTASSIUM 4.1 mmol/L (3.5-5.1)
--- NOTE | 2017-08-31 06:39 | NUR ---
RN NOTE PATIENT RESTED WELL AT NIGHT, NO PAIN OR DISCOMFORT NOTED, PATIENT IS STABLE, ALL SAFETY MEASURES TAKEN, WOUND CARE PROVIDED ORDERED PER MD, WILL ENDORSE TO AM SHIFT FOR SHANIA
[2017-08-31] MEDS: INSULIN LISPRO/ASPART 100 UNIT/ML CARTRIDGE SQ SCH ×3 (07:30→17:30)
[2017-08-31] MEDS: BLOOD SUGAR DIAGNOSTIC 1 EACH STRIP VI SCH ×3 (07:30→17:30)
[2017-08-31 08:00] VITALS: BP 119/68
[2017-08-31 08:12] VITALS: BP 119/68
[2017-08-31] MEDS: DILTIAZEM HCL CD 240 MG PO SCH (09:49)
[2017-08-31] MEDS: LACTOBACILLUS RHAMNOSUS GG 1 EACH CAP.SPRINK PO SCH ×2 (09:50→17:26)
[2017-08-31] MEDS: LOSARTAN POTASSIUM 50 MG TABLET PO SCH (09:50)
[2017-08-31] MEDS: CARVEDILOL 12.5 MG TABLET PO SCH (09:50)
[2017-08-31] MEDS: DIGOXIN 0.125 MG TABLET PO SCH (09:51)
[2017-08-31 16:00] VITALS: BP 97/61
--- NOTE | 2017-08-31 19:41 | NUR ---
Patient discharge to [facility] facility. Handoff report to RNMeggan at [facility]. Patient report to EMT's present x3. Patient wound care photo in paper chart. Identification and intravenous site discontinued. Patient took all belongings and verbalized understanding of discharge instructions. Provided copy of paperwork for patient.
== END 2017-08-31 21:10 | DRG 853 ==
LOC: MEDSG2 17:18 → TELE-TD 20:45 → ICU 22:58 → TELE1 08-27 15:30 → MEDSG1 08-29 11:17
PROVIDERS: ADMIT Nurse Practitioner Acute Care; ATTEND Nurse Practitioner Acute Care
PROC: 0JB70ZZ Excision of Back Subcutaneous Tissue and Fascia, Open Approach (ICD-10-PCS; principal; 2017-08-25 20:30)
PROC: 0KBF0ZZ Excision of Right Trunk Muscle, Open Approach (ICD-10-PCS; 2017-08-30)
DX: A41.9 Sepsis, unspecified organism (principal); M72.6 Necrotizing fasciitis; L02.212 Cutaneous abscess of back [any part, except buttock and flank]; D68.59 Other primary thrombophilia; E87.1 Hypo-osmolality and hyponatremia; N17.9 Acute kidney failure, unspecified; I48.91 Unspecified atrial fibrillation; I10 Essential (primary) hypertension; E11.65 Type 2 diabetes mellitus with hyperglycemia; Z91.19 Patient's noncompliance with other medical treatment and regimen; B95.61 Methicillin susceptible Staphylococcus aureus infection as the cause of diseases classified elsewhere; Z79.4 Long term (current) use of insulin
CPT/HCPCS: 36415; 71045-TC; 80048-TC; 80053-TC; 80061-TC; 80202-TC; 82962-TC; 83735-TC; 84100-TC; 84443-TC; 85025-TC; 85610-TC; 87040-TC; 87070-TC; 87081-TC; A4217; A4606; A6253; A6402; A6403; J0330; J0696; J1170; J1815; J2270; J2543; J3370; J3490; J7030; J7050; J7060; Z7610

== ENCOUNTER 2017-10-21 13:45 | Outpatient (CLI) | payer MEDICARE | END 2017-10-21 23:59 | disposition home health service (06) | LOC: WOU 13:45 | PROVIDERS: ATTEND Surgery | DX: T81.89XA Other complications of procedures, not elsewhere classified, initial encounter (principal); E66.9 Obesity, unspecified; Z68.34 Body mass index [BMI] 34.0-34.9, adult; M62.50 Muscle wasting and atrophy, not elsewhere classified, unspecified site; I48.91 Unspecified atrial fibrillation; L02.212 Cutaneous abscess of back [any part, except buttock and flank] | CPT/HCPCS: 11043; 11046; A6402; Z7610 ==